=== PATIENT | male | born 1950 ===

== ENCOUNTER 2020-04-27 15:00 | Outpatient (CLI) | payer OTHER | END 2020-04-27 20:22 | disposition home or self-care (01) | LOC: PPH VACUNA 15:00 | PROVIDERS: ATTEND Emergency Medicine Pediatric Emergency Medicine | DX: Z23 Encounter for immunization (principal) ==

== ENCOUNTER 2020-05-18 13:25 | Outpatient (CLI) | payer OTHER | END 2020-05-18 13:26 | disposition home or self-care (01) | LOC: PPH VACUNA 13:25 | PROVIDERS: ATTEND Emergency Medicine Pediatric Emergency Medicine | DX: Z23 Encounter for immunization (principal) ==